=== PATIENT | female | born 1960 | race Caucasian/White ===

== ENCOUNTER 2017-11-29 04:49 | Emergency (ER) | payer MEDICARE, OTHER ==
[2017-11-29 05:11] VITALS: RESP 18; TEMP 97.7; O2SAT 99
--- NOTE | 2017-11-29 05:17 | ED PDOC ---
Arrival/HPI - General Chief Complaint: ENT Problem Time Seen by Provider: 11/29/17 05:03 Historian: Patient - History of Present Illness Narrative History of Present Illness (Text): 11/29/17 05:17 Delores Tavares is a 57 year old female who presents to the Emergency department complaining of sore throat and bilateral ear pain since yesterday. Patient denies any fever, chills, chest pain, shortness of breath, nausea, vomiting, neck pain, headache, dizziness, or any other complaints. Time/Duration: Other (yesterday) Symptom Onset: Gradual Symptom Course: Unchanged Activities at Onset: Light Context: Home Past Medical History - Provider Review Nursing Documentation Reviewed: Yes - Cardiac Hx Hypertension: Yes - Pulmonary Hx Respiratory Disorders: No - Neurological Hx Neurological Disorder: No - HEENT Hx HEENT Disorder: No - Renal Hx Renal Disorder: No - Endocrine/Metabolic Hx Endocrine Disorders: No - Hematological/Oncological Hx Blood Disorders: No - Integumentary Hx Dermatological Disorder: No - Musculoskeletal/Rheumatological Hx Falls: No Hx Spinal Stenosis: Yes - Gastrointestinal Hx Gastrointestinal Disorders: No - Genitourinary/Gynecological Hx Genitourinary Disorders: No - Psychiatric Hx Psychophysiologic Disorder: No Hx Depression: No Hx Emotional Abuse: No Hx Physical Abuse: No Hx Substance Use: No - Anesthesia Hx Anesthesia: No - Suicidal Assessment Feels Threatened In Home Enviroment: No Family/Social History - Physician Review Nursing Documentation Reviewed: Yes Family/Social History: Unknown Family HX Smoking Status: Never Smoked Hx Alcohol Use: No Hx Substance Use: No Hx Substance Use Treatment: No Allergies/Home Meds Allergies/Adverse Reactions: Allergies azithromycin [From Zithromax] Allergy (Verified 11/29/17 05:34) VOMITING latex Allergy (Verified 11/29/17 05:34) RASH Penicillins Allergy (Verified 11/29/17 05:34) ANAPHYLAXIS Home Medications: Home Meds Medication Instructions Recorded Confirmed Atorvastatin Calcium [Lipitor] 10 mg PO HS 03/14/12 06/10/16 Review of Systems - Physician Review All systems were reviewed & negative as marked: Yes - Review of Systems Constitutional: Normal. absent: Fevers Eyes: Normal ENT: Sore Throat, Other (+bilateral ear discomfort) Respiratory: Normal. absent: SOB, Cough Cardiovascular: Normal. absent: Chest Pain Gastrointestinal: Normal. absent: Abdominal Pain, Diarrhea, Nausea, Vomiting Genitourinary Female: Normal Musculoskeletal: Normal Skin: Normal Neurological: Normal Endocrine: Normal Hemo/Lymphatic: Normal Psychiatric: Normal Physical Exam Vital Signs Reviewed: Yes Vital Signs Temp Pulse Resp BP Pulse Ox 11/29/17 06:10 78 18 126/84 99 11/29/17 05:03 97.7 F 80 18 125/86 99 Temperature: Afebrile Blood Pressure: Normal Pulse: Regular Respiratory Rate: Normal Appearance: Positive for: Well-Appearing, Non-Toxic, Comfortable Pain Distress: None Mental Status: Positive for: Alert and Oriented X 3 - Systems Exam Head: Present: Atraumatic, Normocephalic Pupils: Present: PERRL Extroacular Muscles: Present: EOMI Conjunctiva: Present: Normal Ears: Present: Normal, NORMAL TM, Normal Canal. No: Erythema, TM Bulging, Fluid Mouth: Present: Moist Mucous Membranes Pharnyx: Present: ERYTHEMA (Erythema to posterior pharynx). No: EXUDATE, TONSILS ENLARGED, Peritonsilar Swelling, Uvular Deviation, Muffled/Hoarse Voice , Strider, Soft Palate/Uvular Edema Nose (External): Present: Atraumatic Nose (Internal): Present: Normal Inspection Neck: Present: Normal Range of Motion. No: Meningeal Signs, MIDLINE TENDERNESS , Paraspinal Tenderness Respiratory/Chest: Present: Clear to Auscultation, Good Air Exchange. No: Respiratory Distress, Accessory Muscle Use Cardiovascular: Present: Regular Rate and Rhythm, Normal S1, S2. No: Murmurs Abdomen: Present: Normal Bowel Sounds. No: Tenderness, Distention, Peritoneal Signs Back: Present: Normal Inspection. No: CVA Tenderness, Midline Tenderness, Paraspinal Tenderness Upper Extremity: Present: Normal Inspection. No: Cyanosis, Edema Lower Extremity: Present: Normal Inspection. No: Edema Neurological: Present: GCS=15, CN II-XII Intact, Speech Normal Skin: Present: Warm, Dry, Normal Color. No: Rashes Psychiatric: Present: Alert, Oriented x 3, Normal Insight, Normal Concentration Medical Decision Making ED Course and Treatment: 11/29/17 05:17 Impression: 57 year old female complaining of sore throat and bilateral ear pain since yesterday. Differential Diagnosis included but are not limited to: pharyngitis Plan: -- Motrin -- Cleocin -- Reassess and disposition Progress Notes: Pt is well-appearing, in no acute distress. Patient is stable for discharge. Patient was instructed to follow up with physician/clinic in 1-2 days or return if symptoms persist/worsen or new concerning symptoms arise. - Medication Orders Current Medication Orders: Discontinued Medications Clindamycin HCl (Cleocin) 150 mg PO STAT STA PRN Reason: Protocol Stop: 11/29/17 05:53 Last Admin: 11/29/17 06:05 Dose: 150 mg Ibuprofen (Motrin Tab) 600 mg PO STAT STA Stop: 11/29/17 05:52 Last Admin: 11/29/17 06:06 Dose: 600 mg MAR Pain/Vitals Document 11/29/17 06:06 CORI (Rec: 11/29/17 06:06 CORI [id number]) Pain Reassessment Is This A Pain ReAssessment? No Sleep Is patient sleeping during reassessment? No Presence of Pain Presence of Pain Yes Pain Scale Used Pain Scale Used Numeric Location Intensity 4 - Scribe Statement The provider has reviewed the documentation as recorded by the Jose Roberto Penny Provider Scribe Attestation: All medical record entries made by the Scribe were at my direction and personally dictated by me. I have reviewed the chart and agree that the record accurately reflects my personal performance of the history, physical exam, medical decision making, and the department course for this patient. I have also personally directed, reviewed, and agree with the discharge instructions and disposition. Disposition/Present on Arrival - Present on Arrival Any Indicators Present on Arrival: No History of DVT/PE: No History of Uncontrolled Diabetes: No Urinary Catheter: No History of Decub. Ulcer: No History Surgical Site Infection Following: None - Disposition Have Diagnosis and Disposition been Completed?: Yes Diagnosis: Pharyngitis Disposition: HOME/ ROUTINE Disposition Time: 05:49 Patient Plan: Discharge Condition: GOOD Discharge Instructions (ExitCare): Pharyngitis (ED) Additional Instructions: Take meds as prescribed/follow up with your doctor this week Prescriptions: Clindamycin [Cleocin] 150 mg PO QID #28 cap Forms: Identified (Spanish)
[2017-11-29 06:12] VITALS: BP 126/84; PULSE 78
== END 2017-11-29 06:11 | disposition home or self-care (01) ==
LOC: ED 04:49
DX: J02.9 Acute pharyngitis, unspecified (principal)

== ENCOUNTER 2018-08-12 17:38 | Emergency (ER) | payer MEDICARE, OTHER | END 2018-08-12 19:25 | disposition left against medical advice (07) | LOC: ED 17:38 | DX: Z02.89 Encounter for other administrative examinations (principal); R52 Pain, unspecified ==

== ENCOUNTER 2018-08-14 07:26 | Emergency (ER) | payer MEDICARE, OTHER ==
[2018-08-14 07:41] VITALS: RESP 18
--- NOTE | 2018-08-14 07:42 | ED PDOC ---
Arrival/HPI - General Chief Complaint: Abdominal Pain Time Seen by Provider: 08/14/18 07:28 Historian: Patient, Spouse - History of Present Illness Narrative History of Present Illness (Text): 08/14/18 07:42 58 year old female, whose past medical history includes hypercholesterolemia, cholecystectomy, and , presents to the emergency room complaining of constant right lower abdominal pain for the past 4 days. Patient describes the abdominal pain as a stabbing sensation worsen with movement. As per , patient was seen by [facility] and had a CT done that showed fat necrosis around the colon. She was discharged home and saw her PMD yesterday who told her to come to the [facility] and to see Dr. Berrios for a surgical consult. Patient's last bowel movement was this morning and states it was normal. She reported taking Tylenol and Aleve with no relief. Patient denies any trauma, fevers, chills, chest pain, shortness of breath, nausea, vomiting, diarrhea, constipation, dark/blood stool, back pain, neck pain, urinary symptoms, headache, dizziness, rash, or any other complaint. PMD: Dr. Wiggins Time/Duration: Other (4 days ) Symptom Onset: Gradual Symptom Course: Unchanged Quality: Stabbing Activities at Onset: Light Context: Home Past Medical History - Provider Review Nursing Documentation Reviewed: Yes - Infectious Disease Hx of Infectious Diseases: None - Reproductive Menopause: Yes - Cardiac Hx Cardiac Disorders: Yes - Pulmonary Hx Respiratory Disorders: No - Neurological Hx Neurological Disorder: No - HEENT Hx HEENT Disorder: No - Renal Hx Renal Disorder: No - Endocrine/Metabolic Hx Endocrine Disorders: No - Hematological/Oncological Hx Blood Disorders: No - Integumentary Hx Dermatological Disorder: No - Musculoskeletal/Rheumatological Hx Falls: No Hx Spinal Stenosis: Yes - Gastrointestinal Hx Gastrointestinal Disorders: No - Genitourinary/Gynecological Hx Genitourinary Disorders: No - Psychiatric Hx Psychophysiologic Disorder: No Hx Depression: No Hx Emotional Abuse: No Hx Physical Abuse: No Hx Substance Use: No - Anesthesia Hx Anesthesia: No - Suicidal Assessment Feels Threatened In Home Enviroment: No Family/Social History - Physician Review Nursing Documentation Reviewed: Yes Family/Social History: No Known Family HX Smoking Status: Never Smoked Hx Alcohol Use: No Hx Substance Use: No Hx Substance Use Treatment: No Allergies/Home Meds Allergies/Adverse Reactions: Allergies azithromycin [From Zithromax] Allergy (Verified 11/29/17 05:34) VOMITING lactose Allergy (Verified 08/14/18 07:41) VOMITING latex Allergy (Verified 11/29/17 05:34) RASH Penicillins Allergy (Verified 11/29/17 05:34) ANAPHYLAXIS Home Medications: Home Meds Medication Instructions Recorded Confirmed Atorvastatin Calcium [Lipitor] 10 mg PO HS 03/14/12 08/14/18 Review of Systems - Physician Review All systems were reviewed & negative as marked: Yes - Review of Systems Constitutional: absent: Fevers, Other (Chills) Respiratory: absent: SOB Cardiovascular: absent: Chest Pain Gastrointestinal: Abdominal Pain. absent: Stool Changes, Diarrhea, Nausea, Hematochezia Genitourinary Female: absent: Dysuria, Frequency, Hematuria, Vaginal Discharge Musculoskeletal: absent: Back Pain, Neck Pain Skin: absent: Rash Neurological: absent: Headache, Dizziness Physical Exam Vital Signs Reviewed: Yes Vital Signs Temp Pulse Resp BP Pulse Ox 08/14/18 07:35 97.9 F 75 18 132/75 97 Temperature: Afebrile Blood Pressure: Normal Pulse: Regular Respiratory Rate: Normal Appearance: Positive for: Well-Appearing, Non-Toxic, Comfortable Pain Distress: None Mental Status: Positive for: Alert and Oriented X 3 - Systems Exam Head: Present: Atraumatic, Normocephalic Pupils: Present: PERRL Extroacular Muscles: Present: EOMI Conjunctiva: Present: Normal Mouth: Present: Moist Mucous Membranes Neck: Present: Normal Range of Motion Respiratory/Chest: Present: Clear to Auscultation, Good Air Exchange. No: Respiratory Distress, Accessory Muscle Use Cardiovascular: Present: Regular Rate and Rhythm, Normal S1, S2. No: Murmurs Abdomen: Present: Tenderness (Epigastric paraumbilical pain right lower quadrant ). No: Distention, Peritoneal Signs Back: Present: Normal Inspection Upper Extremity: Present: Normal Inspection. No: Cyanosis, Edema Lower Extremity: Present: Normal Inspection. No: Edema Neurological: Present: GCS=15, CN II-XII Intact, Speech Normal Skin: Present: Warm, Dry, Normal Color. No: Rashes Psychiatric: Present: Alert, Oriented x 3, Normal Insight, Normal Concentration Medical Decision Making ED Course and Treatment: 08/14/18 07:42 Impression: 58 year old female presents complaining of constant right lower abdominal pain for the past 4 days. Was seen at [facility] and was told of Fat necrosis on CT. Sent in by PMD for eval by Dr. Berrios (surgery). Given RLQ pain, will likely seek CT and labs as well as consult. Plan: -- VBG -- CT Abdomen and Pelvis -- EKG -- Labs -- IV Fluids -- POC Urine Test -- Urinalysis -- Reassess and disposition Progress Notes: 08/14/18 07:55 EKG shows NSR at 70 BPM with no STEMI. Interpreted by me. 08/14/18 08:00 Case discussed with residential appliance repair technician who is requesting a CT ABD & Pelvis with contrast to be done. 08/14/18 09:17 labs w/ mildly elevated lactic 2.2, fluids running. pending imaging. PROCEDURE: CT Abdomen and Pelvis with contrast Dictator : Edgardo Lima MD Report Date : 08/14/2018 10:30:53 IMPRESSION: Severe spondylolisthesis at L4-5. Fatty infiltration of the liver. Previous cholecystectomy 08/14/18 13:05 Pt notes some mild pain, some mild nausea clear for d/c per Dr. Correa team- to follow up out pt for hernia Pt in NAD with VSS. if tolerate clears will d/c home with followup - Lab Interpretations I have reviewed the lab results: Yes - EKG Interpretation Interpreted by ED Physician: Yes Type: 12 lead EKG - Scribe Statement The provider has reviewed the documentation as recorded by the Scribe Jose Alejandro William Provider Scribe Attestation: All medical record entries made by the Scribe were at my direction and personally dictated by me. I have reviewed the chart and agree that the record accurately reflects my personal performance of the history, physical exam, medical decision making, and the department course for this patient. I have also personally directed, reviewed, and agree with the discharge instructions and disposition. Disposition/Present on Arrival - Present on Arrival Any Indicators Present on Arrival: Yes History of DVT/PE: No History of Uncontrolled Diabetes: No Urinary Catheter: No History of Decub. Ulcer: No History Surgical Site Infection Following: None - Disposition Have Diagnosis and Disposition been Completed?: Yes Diagnosis: Abdominal pain, Abdominal hernia Disposition: HOME/ ROUTINE Disposition Time: 13:00 Condition: GOOD Discharge Instructions (ExitCare): Acute Abdomen (Belly Pain), Adult (DC), Abdominal Hernia (DC) Additional Instructions: GET OVER THE COUNTER MIRALAX IF YOU NEED IT FOR CONSTIPATION LIKE WE DISCUSSED LATOYA GUPTA MONI, thank you for letting us take care of you today. Your provider was Stevie Small and you were treated for SENT BY MD FOR ABD PAIN. The emergency medical care you received today was directed at your acute symptoms. If you were prescribed any medication, please fill it and take as directed. It may take several days for your symptoms to resolve. Return to the Emergency Department if your symptoms worsen, do not improve, or if you have any other problems. Please contact your doctor or call one of the physicians/clinics you have been referred to that are listed on the Patient Visit Information form that is included in your discharge packet. Bring any paperwork you were given at discharge with you along with any medications you are taking to your follow up visit. Our treatment cannot replace ongoing medical care by a primary care provider outside of the emergency department. Thank you for allowing the [facility] team to be part of your care today. If you had an X-Ray or CT scan: A Radiologist will review the ED reading if any change in treatment is needed we will contact you. If you had a blood, urine, or wound culture: It will take several days for the results, if any change in treatment is needed we will contact you. If you had an STI test: It will take 48 hours for the results. Please call after 1 week if you have not heard back. Referrals: Arpit Berrios MD [Staff Provider] - Follow up with primary Caesar Camacho MD [Family Provider] - Follow up with primary Forms: [employer] (Mosotho)
[2018-08-14] MEDS ORDERED: Sodium Chloride 0.9% 1,000 ML IV SCH (07:45)
[2018-08-14] MEDS ORDERED: Iohexol 240 (50 ml) ONE (08:06)
[2018-08-14 08:42] LABS: VENOUS BLOOD GAS BASE EXCESS 2.8 mmol/L (0.0-2.0); VENOUS BLOOD GAS PO2 41 mm/Hg (30-55); VENOUS BLOOD PH 7.33 (7.32-7.43)
[2018-08-14 08:44] LABS: URINE BILIRUBIN NEGATIVE (NEGATIVE); URINE BLOOD NEGATIVE (NEGATIVE); URINE GLUCOSE (UA) NEGATIVE (NEGATIVE); URINE LEUKOCYTE ESTERASE NEGATIVE Leu/uL (NEGATIVE); URINE PROTEIN NEGATIVE mg/dL (<30 mg/dL); URINE UROBILINOGEN 0.2 E.U./dL (<1 E.U./dL)
[2018-08-14 08:45] LABS: URINE APPEARANCE CLEAR (CLEAR); URINE COLOR YELLOW (YELLOW)
[2018-08-14 08:47] LABS: BASO # 0.01 K/mm3 (0.0-2.0); BASO % 0.1 % (0.0-3.0); EOS # 0.1 (0.0-0.7); EOS % 0.8 % (1.5-5.0); GRAN # 3.63 (1.4-6.5); GRAN % 47.6 % (50.0-68.0); HEMOGLOBIN 12.4 g/dL (12.0-16.0); LYMPH # 3.4 (1.2-3.4); LYMPH % 44.4 % (22.0-35.0); MEAN CELL VOLUME 91.5 fl (80.0-105.0); MEAN CORPUSCULAR HEMOGLOBIN 30.1 pg (25.0-35.0); MEAN CORPUSCULAR HGB CONC 32.9 g/dl (31.0-37.0); MEAN PLATELET VOLUME 9.3 fl (7.0-11.0); MONO # 0.5 (0.1-0.6); MONO % 7.1 % (1.0-6.0); RBC 4.12 10^6/uL (3.5-6.1); RED CELL DISTRIBUTION WIDTH 12.4 % (11.5-14.5); WHITE BLOOD COUNT 7.6 10^3/ul (4.5-11.0)
[2018-08-14] MEDS ORDERED: Morphine 4 mg/ml ISec IVP STA ×2 (08:48→12:52)
[2018-08-14 09:02] LABS: ALB/GLOB RATIO 1.4 (1.1-1.8); ALT/SGPT 38 U/L (7-56); AST/SGOT 32 U/L (14-36); BLOOD UREA NITROGEN 15 mg/dL (7-21); CALCIUM 9.1 mg/dL (8.4-10.5); GFR NON-AFRICAN AMERICAN > 60; LIPASE 23 U/L (23-300)
[2018-08-14] MEDS ORDERED: Iohexol 350 MG/100 ML VIAL ONE (09:12)
--- NOTE | 2018-08-14 09:18 | CARD ---
APPROVED REPORT Date of service: 08/14/2018 EKG Measurement Heart [id number] <Conclusion> Normal sinus rhythm Normal ECG
--- NOTE | 2018-08-14 10:34 | CT ---
Date of service: 08/14/2018 PROCEDURE: CT Abdomen and Pelvis with contrast HISTORY: hx of fat necrosis, lap choley p/w rlq pain, epiga COMPARISON: None. TECHNIQUE: Contrast dose: 100 cc of Omni 350 Radiation dose: Total exam DLP = 673 mGy-cm. This CT exam was performed using one or more of the following dose reduction techniques: Automated exposure control, adjustment of the mA and/or kV according to patient size, and/or use of iterative reconstruction technique. FINDINGS: LOWER THORAX: Unremarkable. LIVER: Fatty infiltration of the liver GALLBLADDER AND BILE DUCTS: Gallbladder removed PANCREAS: Unremarkable. No gross lesion or ductal dilatation. SPLEEN: Unremarkable. ADRENALS: Unremarkable. No mass. KIDNEYS AND URETERS: Unremarkable. No hydronephrosis. No solid mass. VASCULATURE: Unremarkable. No aortic aneurysm. BOWEL: Unremarkable. No obstruction. No gross mural thickening. APPENDIX: Normal appendix. PERITONEUM: Unremarkable. No free fluid. No free air. LYMPH NODES: Unremarkable. No enlarged lymph nodes. BLADDER: Unremarkable. REPRODUCTIVE: Unremarkable. BONES: Bilateral spondylolysis with severe spondylolisthesis at L4-5. Severe foraminal stenosis OTHER FINDINGS: None. IMPRESSION: Severe spondylolisthesis at L4-5. Fatty infiltration of the liver. Previous cholecystectomy
--- NOTE | 2018-08-14 12:08 | CP.PCM.CON ---
History of Present Illness - History of Present Illness History of Present Illness: General surgery consult note for Dr. Berrios 58 year old female with past medical history of HLD presenting with constant right lower abdominal pain for the past 4 days. Patient describes the abdominal pain as a stabbing sensation, constant, and 8/10 in severity. She states that the pain is worse with movement. She reported taking Tylenol and Aleve with no relief. Patient was seen by [facility] and had a CT done that showed fat necrosis around the colon. She was discharged home and saw her PMD yesterday who told her to come to the [facility] and to see Dr. Berrios for a surgical consult. Patient denies any trauma, fevers, chills, chest pain, shortness of breath, nausea, vomiting, diarrhea, dark/blood stool, back pain, neck pain, urinary symptoms, headache, dizziness, rash, or any other complaint. PMD: Dr. Wiggins PMH: HLD PSHx: cholecystectomy, and Social Hx: Denies tobacco, alcohol, or drug use Allergies: azithromycin, penicillin, latex Review of Systems - Review of Systems All systems: reviewed and no additional remarkable complaints except Past Patient History - Infectious Disease Hx of Infectious Diseases: None - Past Social History Smoking Status: Never Smoked - CARDIAC Hx Cardiac Disorders: Yes - PULMONARY Hx Respiratory Disorders: No - NEUROLOGICAL Hx Neurological Disorder: No - HEENT Hx HEENT Problems: No - RENAL Hx Chronic Kidney Disease: No - ENDOCRINE/METABOLIC Hx Endocrine Disorders: No - HEMATOLOGICAL/ONCOLOGICAL Hx Blood Disorders: No - INTEGUMENTARY Hx Dermatological Problems: No - MUSCULOSKELETAL/RHEUMATOLOGICAL Hx Falls: No Hx Spinal Stenosis: Yes - GASTROINTESTINAL Hx Gastrointestinal Disorders: No - GENITOURINARY/GYNECOLOGICAL Hx Genitourinary Disorders: No - PSYCHIATRIC Hx Psychophysiologic Disorder: No Hx Depression: No Hx Emotional Abuse: No Hx Physical Abuse: No Hx Substance Use: No - ANESTHESIA Hx Anesthesia: No Meds Allergies/Adverse Reactions: Allergies Allergy/AdvReac Type Severity Reaction Status Date / Time azithromycin [From Zithromax] Allergy VOMITING Verified 11/29/17 05:34 lactose Allergy VOMITING Verified 08/14/18 07:41 latex Allergy RASH Verified 11/29/17 05:34 Penicillins Allergy ANAPHYLAXIS Verified 11/29/17 05:34 - Medications Medications: Current Medications Sodium Chloride (Sodium Chloride 0.9%) 1,000 mls @ 100 mls/hr IV .Q10H SHALONDA Last Admin: 08/14/18 08:31 Dose: 100 mls/hr Physical Exam - Constitutional Appears: Well, Non-toxic, No Acute Distress - Head Exam Head Exam: ATRAUMATIC, NORMOCEPHALIC - Eye Exam Eye Exam: Normal appearance - ENT Exam ENT Exam: Mucous Membranes Moist - Respiratory Exam Respiratory Exam: NORMAL BREATHING PATTERN. absent: Respiratory Distress - Cardiovascular Exam Cardiovascular Exam: RRR. absent: Bradycardia, Tachycardia - GI/Abdominal Exam GI & Abdominal Exam: Soft, Tenderness. absent: Distended, Firm, Guarding, Rigid Additional comments: Tender to palpation on the URQ of the abdomen. - Extremities Exam Extremities exam: Positive for: normal inspection - Neurological Exam Neurological exam: Alert, Oriented x3 - Psychiatric Exam Psychiatric exam: Normal Affect, Normal Mood - Skin Skin Exam: Dry, Intact, Normal Color, Warm Results - Vital Signs Recent Vital Signs: Last Vital Signs Temp 97.9 F 08/14/18 07:35 Pulse 78 08/14/18 11:44 Resp 18 08/14/18 11:44 BP 132/74 08/14/18 11:44 Pulse Ox 99 08/14/18 11:44 - Labs Result Diagrams: 08/14/18 08:12 08/14/18 08:12 Labs: Laboratory Results - last 24 hr 08/14/18 08/14/18 08/14/18 08:12 08:12 08:12 WBC 7.6 RBC 4.12 Hgb 12.4 Hct 37.7 MCV 91.5 MCH 30.1 MCHC 32.9 RDW 12.4 Plt Count 269 MPV 9.3 Gran % 47.6 L Lymph % (Auto) 44.4 H [place] % (Auto) 7.1 H Eos % (Auto) 0.8 L Baso % (Auto) 0.1 Gran # 3.63 Lymph # (Auto) 3.4 [place] # (Auto) 0.5 Eos # (Auto) 0.1 Baso # (Auto) 0.01 pO2 41 VBG pH 7.33 VBG pCO2 57.0 VBG HCO3 30.1 H VBG Total CO2 31.8 H VBG O2 Sat (Calc) 78.6 H VBG Base Excess 2.8 H VBG Potassium 4.1 Sodium 138.0 Chloride 106.0 Glucose 108 H Lactate 2.2 H FiO2 21.0 Potassium Carbon Dioxide Anion Gap BUN Creatinine Est GFR ( Amer) Est GFR (Non-Af Amer) Random Glucose Calcium Magnesium Total Bilirubin AST ALT Alkaline Phosphatase Total Protein Albumin Globulin Albumin/Globulin Ratio Lipase Venous Blood Potassium 4.1 Urine Color Yellow Urine Appearance Clear Urine pH 7.0 Ur Specific [place] 1.015 Urine Protein Negative Urine Glucose (UA) Negative Urine Ketones Negative Urine Blood Negative Urine Nitrate Negative Urine Bilirubin Negative Urine Urobilinogen 0.2 Ur Leukocyte Esterase Negative 08/14/18 08:12 WBC RBC Hgb Hct MCV MCH MCHC RDW Plt Count MPV Gran % Lymph % (Auto) [place] % (Auto) Eos % (Auto) Baso % (Auto) Gran # Lymph # (Auto) [place] # (Auto) Eos # (Auto) Baso # (Auto) pO2 VBG pH VBG pCO2 VBG HCO3 VBG Total CO2 VBG O2 Sat (Calc) VBG Base Excess VBG Potassium Sodium 139 Chloride 104 Glucose Lactate FiO2 Potassium 4.2 Carbon Dioxide 29 Anion Gap 11 BUN 15 Creatinine 0.6 L Est GFR ( Amer) > 60 Est GFR (Non-Af Amer) > 60 Random Glucose 110 Calcium 9.1 Magnesium 2.3 H Total Bilirubin 0.4 AST 32 ALT 38 Alkaline Phosphatase 91 Total Protein 6.9 Albumin 4.0 Globulin 2.9 Albumin/Globulin Ratio 1.4 Lipase 23 Venous Blood Potassium Urine Color Urine Appearance Urine pH Ur Specific [place] Urine Protein Urine Glucose (UA) Urine Ketones Urine Blood Urine Nitrate Urine Bilirubin Urine Urobilinogen Ur Leukocyte Esterase Assessment & Plan - Assessment and Plan (Free Text) Assessment: 58 year old female presenting with right lower abdominal pain. Patient was seen by [facility] and had a CT done on 08/13 that showed fat necrosis around the colon. Repeat CT at [facility] on 08/14 showed severe spondylolisthesis at L4-L5, fatty infiltration of the liver, and previous cholecystectomy. Plan: - No acute surgical intervention at this time - Stool softeners for her constipation - Instructed patient to follow up with Dr. Berrios outpatient for elective hernia repair surgery Case discussed with Dr. Berrios. Mario Means PGY-1
[2018-08-14 13:08] LABS: VENOUS BLOOD GAS BASE EXCESS 3.2 mmol/L (0.0-2.0); VENOUS BLOOD GAS PO2 36 mm/Hg (30-55); VENOUS BLOOD PH 7.41 (7.32-7.43)
[2018-08-14 14:18] VITALS: BP 128/68; TEMP 98.2; O2SAT 98
[2018-08-14 14:20] VITALS: PULSE 74
== END 2018-08-14 14:19 | disposition home or self-care (01) ==
LOC: ED 07:26
DX: K46.9 Unspecified abdominal hernia without obstruction or gangrene (principal); R10.9 Unspecified abdominal pain
CPT/HCPCS: 74177; 80053; 81003; 82803; 83690; 83735; 84484; 85025; 93005; 96374; 96375; 99284; J1885; J2270; J2405; J7030; Q9966; Q9967

== ENCOUNTER → 2018-10-14 | Day surgery (SDC) | payer MEDICARE, OTHER ==
[~2018-10-14] MED LIST: Propofol 10 mg/ml Inj (20 ML) ONE; Sodium Chloride 0.9% 1,000 ML IV SCH
[2018-10-14 08:14] VITALS: TEMP 98
[2018-10-14 14:52] VITALS: BP 126/70; PULSE 69; RESP 16; O2SAT 96
== END | disposition home or self-care (01) ==
LOC: ENDO 07:27
PROVIDERS: ATTEND Internal Medicine Gastroenterology
DX: K57.30 Diverticulosis of large intestine without perforation or abscess without bleeding (principal); K64.8 Other hemorrhoids; K63.89 Other specified diseases of intestine
CPT/HCPCS: 45380; 88305; J2704; J7030; J7040

== ENCOUNTER 2019-01-24 09:17 | Outpatient (CLI) | payer MEDICARE, OTHER | END 2019-01-24 09:18 | disposition home or self-care (01) | LOC: RAD 09:17 | DX: Z12.31 Encounter for screening mammogram for malignant neoplasm of breast (principal) ==